=== PATIENT | male | born 1980 | race Asian ===

== ENCOUNTER 2021-03-13 09:53 | Observation (INO) ==
[2021-03-13] MEDS ORDERED: ONDANSETRON INJ 2 MG/ML 2 ML VIAL IV STA (10:34)
[2021-03-13] MEDS ORDERED: SODIUM CHLORIDE 0.9% 1000ML 1,000 ML IV STA (10:34)
--- NOTE | 2021-03-13 11:00 | Emergency Department Note ---
History of Present Illness General Chief complaint: Abdominal Pain Stated complaint: ABD PAIN SINCE 3AM LOWER LEFT Time Seen by Provider: 03/13/21 10:01 History of Present Illness Maximum Pain Intensity: 8 40-year-old male who presents to the emergency department for evaluation of left lower quadrant pain since approximately 3 AM this morning. The patient reports that the pain awakened him from sleep. The patient felt like he needed to have a bowel movement, and went to the bathroom without any productive output. He then went back to bed and was able to fall asleep. When he awoke, the pain was worse. He reports the pain is constant in nature. It does feel better when he lays on his left side. Ambulation worsens the pain. Patient does report a prior history of colonoscopy showing diverticulosis. He denies any current urinary symptoms or history of constipation. He denies any pain radiating into the right abdomen, upper back or chest. He rates his discomfort an 8 out of 10. Home Medications Medication Instructions Recorded Confirmed Type losartan 50 mg PO DAILY 03/13/21 03/13/21 History metformin 500 mg PO DAILY 03/13/21 03/13/21 History omeprazole 20 mg PO DAILY 03/13/21 03/13/21 History Allergies Allergy/AdvReac Type Severity Reaction Status Date / Time irbesartan Allergy Cough Unverified 03/13/21 11:03 Past Med/Surg History Medical History Diabetes Diverticulosis GERD (gastroesophageal reflux disease) Hypertension Surgical History History of colonoscopy Social History Smoking Status: Former smoker marital status: Single current occupational status: employed Feels Safe at Home: Yes Review of Systems 10 system review was performed and was negative except for pertinent positives and negatives as indicated in history of present illness Physical Exam Vital Signs Vital Signs - 24 hr 03/13/21 09:56 03/13/21 12:19 03/13/21 13:33 Temperature 36.2 C L Temperature Source Temporal Artery Scan Pulse Rate 71 71 Pulse Rate [Right Radial] 76 Pulse Rate from SpO2 Sensor 75 Pulse Rhythm [Right Radial] Regular Respiratory Rate 18 20 19 Respiratory Depth Normal Blood Pressure 157/89 H 170/83 H Blood Pressure [Right Arm] 169/84 H Blood Pressure Mean 111 112 Blood Pressure Mean [Right Arm] 112 Blood Pressure Position [Right Arm] Lying Pulse Oximetry 97 99 98 Oxygen Delivery Method Room Air Room Air Sepsis Recent Fever Within 48 Hours No Sepsis New/Unexplained Change in Mental Status N/A Sepsis Action Taken by Nursing No Action Required 03/13/21 13:34 03/13/21 14:14 03/13/21 14:30 Temperature Temperature Source Pulse Rate 72 68 Pulse Rate [Right Radial] Pulse Rate from SpO2 Sensor 72 68 Pulse Rhythm [Right Radial] Respiratory Rate 20 22 15 Respiratory Depth Blood Pressure 171/87 H Blood Pressure [Right Arm] Blood Pressure Mean 115 Blood Pressure Mean [Right Arm] Blood Pressure Position [Right Arm] Pulse Oximetry 98 95 Oxygen Delivery Method Sepsis Recent Fever Within 48 Hours Sepsis New/Unexplained Change in Mental Status Sepsis Action Taken by Nursing 03/13/21 14:31 03/13/21 15:00 03/13/21 15:01 Temperature Temperature Source Pulse Rate 72 63 68 Pulse Rate [Right Radial] Pulse Rate from SpO2 Sensor 72 64 68 Pulse Rhythm [Right Radial] Respiratory Rate 18 14 16 Respiratory Depth Blood Pressure 169/105 H Blood Pressure [Right Arm] Blood Pressure Mean 126 Blood Pressure Mean [Right Arm] Blood Pressure Position [Right Arm] Pulse Oximetry 96 97 98 Oxygen Delivery Method Sepsis Recent Fever Within 48 Hours Sepsis New/Unexplained Change in Mental Status Sepsis Action Taken by Nursing CONSTITUTIONAL: Healthy and well nourished. Patient does not appear acutely il l or toxic. HEENT: Normocephalic, atraumatic. No scleral icterus or conjunctival injection/pallor. NECK: Full active range of motion without discomfort. RESPIRATORY: Clear to auscultation bilaterally with no wheezing, crackles, rhonchi or stridor. CARDIOVASCULAR: Regular rate and rhythm with no murmurs, rubs or gallops. GASTROINTESTINAL: Bowel sounds present in all quadrants. Patient has a notable left lower quadrant tenderness to palpation without rigidity, guarding or rebound. Patient also has a mild right lower quadrant tenderness to palpation with negative Rovsing sign, negative psoas/obturator sign and negative heel tap. Negative CVA tenderness. MUSCULOSKELETAL: Full range of motion of all joints without discomfort. INTEGUMENTARY: No rash or other significant dermatologic conditions noted. HEMATOLOGIC: No ecchymosis or petechiae. PSYCHIATRIC: Positive affect. NEUROLOGIC: No focal neurologic deficits noted. Course Course Patient history and physical exam were performed. Nurses notes were reviewed. Vital signs were reviewed, showing an elevated blood pressure 157/89. The patient is afebrile. IV access was established, and labs were drawn. The patient was hydrated with a liter of normal saline. He was also administered IV Zofran, refusing any analgesics. Review of labs shows a mild leukocytosis of 13.35 with left shift and bandemia. CMP shows an elevated glucose of 149, otherwise remaining labs and lipase are grossly normal. Urinalysis shows no hematuria or signs of infection. CT with IV contrast of the abdomen and pelvis shows no evidence for diverticulitis, bowel obstruction or free air. The patient, unfortunately, does have an acute appendicitis. Surprising findings were discussed with the patient, as well as Dr. Encarnacion, ED attending physician. The case was then discussed with Dr. Culver, general surgeon on-call, who came to the emergency department for further evaluation, and will be taking the patient to the OR for operative management. Prior to transfer of care, the patient refused any further analgesics or antiemetics, and denied any significant discomfort. Please see Dr. Culver's dictation for further treatment and final disposition. Administered Medications Discontinued Medications Sodium Chloride (Nss 1000ml) 1,000 mls @ 999 mls/hr IV .Q1H1M STA Stop: 03/13/21 11:34 Last Infusion: 03/13/21 11:47 Dose: 0 mls/hr Documented by: [id number] Admin: 03/13/21 10:40 Dose: 999 mls/hr Documented by: [id number] Cefoxitin Sodium (Mefoxin) 2,000 mg in 60 mls @ 100 mls/hr IV NOW STA Stop: 03/13/21 14:46 Last Infusion: 03/13/21 15:17 Dose: 0 mls/hr Documented by: [id number] Admin: 03/13/21 14:38 Dose: 100 mls/hr Documented by: [id number] Ioversol (Optiray 320 100ml) 88 ml IV ONCE ONE Stop: 03/13/21 12:17 Last Admin: 03/13/21 12:16 Dose: 88 ml Documented by: [id number] Ondansetron HCl (Ondansetron Inj 2 Mg/Ml 2 Ml Vial) 4 mg IV NOW STA Stop: 03/13/21 10:35 Last Admin: 03/13/21 10:40 Dose: 4 mg Documented by: [id number] Medical Decision Making Medical Records Attestation: I reviewed the patient's medical records. Home Medications Current Medication List: was personally reviewed by me Laboratory Data Attestation: I reviewed the patient's lab results. Result diagrams: 03/13/21 10:12 03/13/21 10:12 Lab Results 03/13/21 03/13/21 03/13/21 Range/Units 10:12 10:12 12:30 WBC 13.35 H (4.8-10.8) K/uL RBC 4.97 (4.7-6.1) M/uL Hgb 15.0 (14.0-18.0) g/dL Hct 43.7 (42-52) % MCV 87.9 (80-100) fL MCH 30.2 (25-34) pg MCHC 34.3 (32-36) g/dL RDW Std Deviation 42.0 (36.4-46.3) fL RDW Coeff of [place] 13.0 (11.5-14.5) % Plt Count 218 (130-400) K/uL MPV 11.0 H (7.4-10.4) fL Immature Gran % (Auto) 0.2 % Neut % (Auto) 80.2 % Lymph % (Auto) 12.1 % [place] % (Auto) 6.1 % Eos % (Auto) 1.3 % Baso % (Auto) 0.1 % Neut # (Auto) 10.69 H (1.4-6.5) K/uL Lymph # (Auto) 1.61 (1.2-3.4) K/uL [place] # (Auto) 0.82 H (0.11-0.59) K/uL Eos # (Auto) 0.18 (0-0.5) K/uL Baso # (Auto) 0.02 (0-0.2) K/uL Immature Gran # (Auto) 0.03 H (0.00-0.02) K/uL Sodium 136 (136-145) mmol/L Potassium 3.9 (3.5-5.1) mmol/L Chloride 104 (98-107) mmol/L Carbon Dioxide 26 (21-32) mmol/L Anion Gap 6.0 (3-11) BUN 12 (7-18) mg/dl Creatinine 0.87 (0.6-1.4) mg/dl Est Cr Clr Drug Dosing 159.2 ml/min Est GFR ( Amer) 126.0 ml/min Est GFR (Non-Af Amer) 108.7 ml/min BUN/Creatinine Ratio 13.2 (10-20) Glucose 149 H (70-99) mg/dl Calcium 9.2 (8.5-10.1) mg/dl Total Bilirubin 0.6 (0.2-1) mg/dl AST 29 (15-37) U/L ALT 57 (12-78) U/L Alkaline Phosphatase 80 (45-117) U/L Total Protein 7.6 (6.4-8.2) gm/dl Albumin 3.9 (3.4-5.0) gm/dl Globulin 3.7 (2.5-4.0) gm/dl Albumin/Globulin Ratio 1.1 (0.9-2) Lipase 93 (73-393) U/L Urine Color Yellow Urine Appearance Cloudy A (Clear) Urine pH 7.5 (4.5-7.5) Ur Specific War 1.029 (1.000-1.030) Urine Protein Trace H (Negative) Urine Glucose (UA) Negative (Negative) Urine Ketones Negative (Negative) Urine Blood Negative (Negative) Urine Nitrite Negative (Negative) Urine Bilirubin Negative (Negative) Urine Urobilinogen Negative (Negative) Ur Leukocyte Esterase Negative (Negative) Urine WBC (Auto) 1-5 (0-5) /hpf Urine RBC (Auto) 0-4 (0-4) /hpf U Hyaline Cast (Auto) 0 (0-5) /lpf U Epithel Cells (Auto) 0-5 (0-5) /lpf Urine Bacteria (Auto) Negative (Negative) COVID-19 Eval Order SARS-CoV-2 (PCR) (Negative) 03/13/21 03/13/21 Range/Units Unknown Unknown WBC (4.8-10.8) K/uL RBC (4.7-6.1) M/uL Hgb (14.0-18.0) g/dL Hct (42-52) % MCV (80-100) fL MCH (25-34) pg MCHC (32-36) g/dL RDW Std Deviation (36.4-46.3) fL RDW Coeff of [place] (11.5-14.5) % Plt Count (130-400) K/uL MPV (7.4-10.4) fL Immature Gran % (Auto) % Neut % (Auto) % Lymph % (Auto) % [place] % (Auto) % Eos % (Auto) % Baso % (Auto) % Neut # (Auto) (1.4-6.5) K/uL Lymph # (Auto) (1.2-3.4) K/uL [place] # (Auto) (0.11-0.59) K/uL Eos # (Auto) (0-0.5) K/uL Baso # (Auto) (0-0.2) K/uL Immature Gran # (Auto) (0.00-0.02) K/uL Sodium (136-145) mmol/L Potassium (3.5-5.1) mmol/L Chloride (98-107) mmol/L Carbon Dioxide (21-32) mmol/L Anion Gap (3-11) BUN (7-18) mg/dl Creatinine (0.6-1.4) mg/dl Est Cr Clr Drug Dosing ml/min Est GFR ( Amer) ml/min Est GFR (Non-Af Amer) ml/min BUN/Creatinine Ratio (10-20) Glucose (70-99) mg/dl Calcium (8.5-10.1) mg/dl Total Bilirubin (0.2-1) mg/dl AST (15-37) U/L ALT (12-78) U/L Alkaline Phosphatase (45-117) U/L Total Protein (6.4-8.2) gm/dl Albumin (3.4-5.0) gm/dl Globulin (2.5-4.0) gm/dl Albumin/Globulin Ratio (0.9-2) Lipase (73-393) U/L Urine Color Urine Appearance (Clear) Urine pH (4.5-7.5) Ur Specific War (1.000-1.030) Urine Protein (Negative) Urine Glucose (UA) (Negative) Urine Ketones (Negative) Urine Blood (Negative) Urine Nitrite (Negative) Urine Bilirubin (Negative) Urine Urobilinogen (Negative) Ur Leukocyte Esterase (Negative) Urine WBC (Auto) (0-5) /hpf Urine RBC (Auto) (0-4) /hpf U Hyaline Cast (Auto) (0-5) /lpf U Epithel Cells (Auto) (0-5) /lpf Urine Bacteria (Auto) (Negative) COVID-19 Eval Order Covid19 at [facility] SARS-CoV-2 (PCR) NEGATIVE (Negative) Imaging Data Attestation: I personally reviewed and interpreted this imaging study as follows: My Impression: My interpretation of a CT with IV contrast of the abdomen and pelvis is highly suspicious for an acute appendicitis. No diverticulitis, bowel obstruction or abdominal free air appreciated. Radiologist report was also rev iewed. Radiologist's Impression: Abdomen/Pelvis CT 03/13/21 10:34 CT abd pelvis IV con only CLINICAL HISTORY: LLQ pain - h/o diverticulosis COMPARISON STUDY: None. TECHNIQUE: A dose lowering technique was utilized adhering to the principles of ALARA. CT DOSE: 1742.23 mGy.cm FINDINGS: Lower chest: The heart is normal in size and configuration, without pericardial effusion. The lung bases and pleural spaces are clear. Liver: Diffuse decrease in attenuation of its parenchyma without evidence of focal lesions or intrahepatic biliary dilatation. Gallbladder: Unremarkable. Spleen: Normal in size and attenuation. Pancreas: Unremarkable. Adrenal glands: Unremarkable. Kidneys: There is symmetric renal cortical enhancement. The kidneys are normal in size without hydronephrosis. 5 mm nonobstructive calculus is seen within left renal pelvis. Bowel: The small bowel and colon are normal in course and caliber. Mild hiatal hernia is seen. Appendix is mildly dilated measuring 1.1 cm in diameter with mild surrounding fat stranding. Findings are concerning for appendicitis. No evidence of perforation or abscess is seen. Few slightly prominent mesenteric lymph nodes are seen within right hemiabdomen. Few diverticuli are seen within ascending and sigmoid colon without evidence of diverticulitis. Peritoneum: There is no intraperitoneal free air or abdominal ascites. Vasculature: The abdominal aorta is normal in course and caliber. Adenopathy: No retroperitoneal lymphadenopathy seen. Pelvic viscera: The bladder, and pelvic viscera are unremarkable. Skeletal structures: Multilevel degenerative changes of the spine. Heavy b ridging osteophytes within lumbar spine are seen. IMPRESSION: 1. Dilated appendix with mild surrounding inflammatory changes likely represent acute noncomplicated appendicitis. 2. Hepatic steatosis. 3. Mild hiatal hernia. 4. Diverticulosis of ascending and sigmoid colon without evidence of diverticulitis. 5. Nonobstructive nephrolithiasis on the left. ACT 112: Negative or not required by law. The above report was generated using voice recognition software. It may contain grammatical, syntax or spelling errors. Electronically signed by: Sanjana Cox DO 03/13/2021 1:02 PM Blood Pressure Blood Pressure Findings: Elevated blood pressure MDM Narrative She presents to the emergency department with complaint of left lower quadrant abdominal pain. Patient has a history of colonoscopy showing diverticulosis in the past. Work-up today was suspected to show evidence for diverticulitis, however CT imaging does not show this to be the case, and in fact shows an acute appendicitis. Patient does have a mild leukocytosis. He is afebrile. Baljit tional lab work is not suggestive of UTI, pancreatitis, cholecystitis or hepatitis. Impression & Plan Acute appendicitis Discharge Plan Visit Data Chief Complaint: Abdominal Pain Stated Complaint: ABD PAIN SINCE 3AM LOWER LEFT ED Provider: Camden Encarnacion ED Midlevel Provider: Louie Pittman Discharge Problem: Acute appendicitis Forms Stand Alone Forms: [employer] Prescriptions Prescriptions: No Action losartan 50 mg Tablet 50 mg PO DAILY RF: 0 metformin 500 mg Tablet 500 mg PO DAILY RF: 0 omeprazole 20 mg Capsule,Delayed Release(Dr/Ec) 20 mg PO DAILY RF: 0 Discharge Problem: Acute appendicitis Qualifiers: Acute appendicitis type: with localized peritonitis Appendicitis gangrene presence: without gangrene Appendicitis perforation presence: without perforation Appendicitis abscess presence: without abscess Qualified Code(s): K35.30 - Acute appendicitis with localized peritonitis, without perforation or gangrene
[2021-03-13 11:06] LABS: Basophils # (auto) 0.02 K/uL (0-0.2); Basophils % (auto) 0.1 %; Eosinophils # (auto) 0.18 K/uL (0-0.5); Eosinophils % (auto) 1.3 %; Hematocrit (blood only) 43.7 % (42-52); Immature Granulocytes # (auto) 0.03 K/uL (0.00-0.02); Immature Granulocytes % (auto) 0.2 %; Lymphocytes # (auto) 1.61 K/uL (1.2-3.4); Lymphocytes % (auto) 12.1 %; Mean Corpuscular Hemoglobin 30.2 pg (25-34); Mean Corpuscular Hgb Conc 34.3 g/dL (32-36); Mean Corpuscular Volume 87.9 fL (80-100); Monocytes # (auto) 0.82 K/uL (0.11-0.59); Monocytes % (auto) 6.1 %; Neutrophils # (auto) 10.69 K/uL (1.4-6.5); Neutrophils % (auto) 80.2 %; Platelet Count 218 K/uL (130-400); Red Blood Count 4.97 M/uL (4.7-6.1); White Blood Count 13.35 K/uL (4.8-10.8)
[2021-03-13 11:14] LABS: Albumin Level 3.9 gm/dl (3.4-5.0); BUN Creatinine Ratio 13.2 (10-20); Calcium 9.2 mg/dl (8.5-10.1); Creatinine Clr Calc Pharmacy 159.2 ml/min; Est GFR (Non-African American) 108.7 ml/min; Potassium 3.9 mmol/L (3.5-5.1)
[2021-03-13 11:17] LABS: Albumin Globulin Ratio 1.1 (0.9-2); Bilirubin,Total 0.6 mg/dl (0.2-1); Globulin 3.7 gm/dl (2.5-4.0); Total Protein 7.6 gm/dl (6.4-8.2)
[2021-03-13] MEDS ORDERED: OPTIRAY 320 100ml IV ONE (12:16)
[2021-03-13 12:46] LABS: Appearance Urine Cloudy (Clear); Bacteria Urine Automated Negative (Negative); Bilirubin Urine Negative (Negative); Blood Urine Negative (Negative); Cast Urine Automated 0 /lpf (0-5); Color Urine Yellow; Epithelial Cell Urine Auto 0-5 /lpf (0-5); Glucose Urine UA Negative (Negative); Ketones Urine Negative (Negative); Leukocyte Esterase Urine Negative (Negative); Nitrite Urine Negative (Negative); RBC Urine Automated 0-4 /hpf (0-4); Specific Gravity Urine 1.029 (1.000-1.030); Urobilinogen Urine Negative (Negative); pH Urine 7.5 (4.5-7.5)
[2021-03-13 12:56] LABS: Protein Urine Trace (Negative)
--- NOTE | 2021-03-13 13:03 | CT Scan Report ---
CT abd pelvis IV con only CLINICAL HISTORY: LLQ pain - h/o diverticulosis COMPARISON STUDY: None. TECHNIQUE: A dose lowering technique was utilized adhering to the principles of ALARA. CT DOSE: 1742.23 mGy.cm FINDINGS: Lower chest: The heart is normal in size and configuration, without pericardial effusion. The lung ba ses and pleural spaces are clear. Liver: Diffuse decrease in attenuation of its parenchyma without evidence of focal lesions or intrahe patic biliary dilatation. Gallbladder: Unremarkable. Spleen: Normal in size and attenuation. Pancreas: Unremarkable. Adrenal glands: Unremarkable. Kidneys: There is symmetric renal cortical enhancement. The kidneys are normal in size without hydron ephrosis. 5 mm nonobstructive calculus is seen within left renal pelvis. Bowel: The small bowel and colon are normal in course and caliber. Mild hiatal hernia is seen. Append ix is mildly dilated measuring 1.1 cm in diameter with mild surrounding fat stranding. Findings are c oncerning for appendicitis. No evidence of perforation or abscess is seen. Few slightly prominent mes enteric lymph nodes are seen within right hemiabdomen. Few diverticuli are seen within ascending and sigmoid colon without evidence of diverticulitis. Peritoneum: There is no intraperitoneal free air or abdominal ascites. Vasculature: The abdominal aorta is normal in course and caliber. Adenopathy: No retroperitoneal lymphadenopathy seen. Pelvic viscera: The bladder, and pelvic viscera are unremarkable. Skeletal structures: Multilevel degenerative changes of the spine. Heavy bridging osteophytes within lumbar spine are seen. IMPRESSION: 1. Dilated appendix with mild surrounding inflammatory changes likely represent acute noncomplicated appendicitis. 2. Hepatic steatosis. 3. Mild hiatal hernia. 4. Diverticulosis of ascending and sigmoid colon without evidence of diverticulitis. 5. Nonobstructive nephrolithiasis on the left. ACT 112: Negative or not required by law. The above report was generated using voice recognition software. It may contain grammatical, syntax o r spelling errors. Electronically signed by: Sanjana Cox DO 03/13/2021 1:02 PM
--- NOTE | 2021-03-13 14:05 | Surgery Consultation ---
Date of Consultation March 13, 2021 Assessment & Plan (1) Acute appendicitis: pt is a 40 year-old male who presents to ER with 10 hours history RLQ pain, IMP: acute appendicitis, Plan, I recommend to do laparoscopic appendectomy, possible open, D/W benefits, risks and alternatives of the surgery, the risks - infection, bleeding, injury other organs, abscess, bowel obstruction, negative for appendicitis, but still do appendectomy, pt understood, he agrees with the surgery, I answered all questions, pre-op antibiotic, Present on Admission?: Yes History of Present Illness History of Present Illness History of Present Illness General Chief complaint: Abdominal Pain Stated complaint: ABD PAIN SINCE 3AM LOWER LEFT Time Seen by Provider: 03/13/21 10:01 History of Present Illness Maximum Pain Intensity: 8 40-year-old male who presents to the emergency department for evaluation of left lower quadrant pain since approximately 3 AM this morning. The patient reports that the pain awakened him from sleep. The patient felt like he needed to have a bowel movement, and went to the bathroom without any productive output. He then went back to bed and was able to fall asleep. When he awoke, the pain was worse. He reports the pain is constant in nature. It does feel better when he lays on his left side. Ambulation worsens the pain. Patient does report a prior history of colonoscopy showing diverticulosis. He denies any current urinary symptoms or history of constipation. He denies any pain radiating into the right abdomen, upper back or chest. He rates his discomfort an 8 out of 10. I ( Michelet Culver MD) got a call for consult acute appendicitis, I reviewed pt's H/P, labs, CT scan with pt, pt is still have RLQ pain , with nausea, no vomiting, Home Medications Medication Instructions Recorded Confirmed Type losartan 50 mg PO DAILY 03/13/21 03/13/21 History metformin 500 mg PO DAILY 03/13/21 03/13/21 History omeprazole 20 mg PO DAILY 03/13/21 03/13/21 History Allergies Allergy/AdvReac Type Severity Reaction Status Date / Time No Known Allergies Allergy Verified 03/13/21 10:58 Past Med/Surg History Social History Smoking Status: Former smoker Feels Safe at Home: Yes Allergies Allergy/AdvReac Type Severity Reaction Status Date / Time irbesartan Allergy Cough Unverified 03/13/21 11:03 Home Medications Medication Instructions Recorded Confirmed Type losartan 50 mg PO DAILY 03/13/21 03/13/21 History metformin 500 mg PO DAILY 03/13/21 03/13/21 History omeprazole 20 mg PO DAILY 03/13/21 03/13/21 History Patient History Social History Smoking Status: Former smoker Feels Safe at Home: Yes Review of Systems Review of Systems: All systems reviewed & are unremarkable except as noted in HPI & below Constitutional: as per Subjective / HPI Eyes: as per Subjective / HPI Ear, Nose, Mouth, Throat: as per Subjective / HPI Respiratory: as per Subjective / HPI Cardiovascular: as per Subjective / HPI Gastrointestinal: as per Subjective / HPI S/P colonoscopy, diagnosis- diverticolosis Genitourinary: + as per Subjective / HPI Musculoskeletal: as per Subjective / HPI Integumentary: as per Subjective / HPI Neurologic: as per Subjective / HPI Psychiatric: as per Subjective / HPI Endocrine: as per Subjective / HPI DM Hematologic / Lymphatic: as per Subjective / HPI Physical Exam Constitutional: WD/WN, vitals as above well developed and well nourished Eyes: PERRL, conjunctivae normal, anicteric sclerae ENMT: external ear and nose normal, oropharynx normal Neck: trachea midline, no thyromegaly Respiratory: normal respiratory effort, lungs clear to auscultation normal respiratory effort Cardiovascular: RRR, no murmur, no edema Gastrointestinal (Abdomen): Percussion/Palpation: + abdomen tender and abdomen soft tenderness at RLQ, no rebound pain, BS + Musculoskeletal: no cyanosis or clubbing, extremities motor strength 5/5 Neurologic: awake Psychiatric: Orientation: alert and oriented x 3 Results & Data ([facility]) Vital Signs (Past 12 Hours) Vital Signs Temp Pulse Pulse Resp BP BP Pulse Ox 03/13/21 12:19 76 20 169/84 H 99 03/13/21 09:56 36.2 C L 71 18 157/89 H 97 Laboratory Results Abnormal lab results 03/13/21 03/13/21 03/13/21 Range/Units 10:12 10:12 12:30 WBC 13.35 H (4.8-10.8) K/uL MPV 11.0 H (7.4-10.4) fL Neut # (Auto) 10.69 H (1.4-6.5) K/uL [place] # (Auto) 0.82 H (0.11-0.59) K/uL Immature Gran # (Auto) 0.03 H (0.00-0.02) K/uL Glucose 149 H (70-99) mg/dl Urine Appearance Cloudy A (Clear) Urine Protein Trace H (Negative) Diagnostic Findings CT abd pelvis IV con only CLINICAL HISTORY: LLQ pain - h/o diverticulosis COMPARISON STUDY: None. TECHNIQUE: A dose lowering technique was utilized adhering to the principles of ALARA. CT DOSE: 1742.23 mGy.cm FINDINGS: Lower chest: The heart is normal in size and configuration, without pericardial effusion. The lung bases and pleural spaces are clear. Liver: Diffuse decrease in attenuation of its parenchyma without evidence of focal lesions or intrahepatic biliary dilatation. Gallbladder: Unremarkable. Spleen: Normal in size and attenuation. Pancreas: Unremarkable. Adrenal glands: Unremarkable. Kidneys: There is symmetric renal cortical enhancement. The kidneys are normal in size without hydronephrosis. 5 mm nonobstructive calculus is seen within left renal pelvis. Bowel: The small bowel and colon are normal in course and caliber. Mild hiatal hernia is seen. Appendix is mildly dilated measuring 1.1 cm in diameter with mild surrounding fat stranding. Findings are concerning for appendicitis. No evidence of perforation or abscess is seen. Few slightly prominent mesenteric lymph nodes are seen within right hemiabdomen. Few diverticuli are seen within ascending and sigmoid colon without evidence of diverticulitis. Peritoneum: There is no intraperitoneal free air or abdominal ascites. Vasculature: The abdominal aorta is normal in course and caliber. Adenopathy: No retroperitoneal lymphadenopathy seen. Pelvic viscera: The bladder, and pelvic viscera are unremarkable. Skeletal structures: Multilevel degenerative changes of the spine. Heavy bridging osteophytes within lumbar spine are seen. IMPRESSION: 1. Dilated appendix with mild surrounding inflammatory changes likely represent acute noncomplicated appendicitis. 2. Hepatic steatosis. 3. Mild hiatal hernia. 4. Diverticulosis of ascending and sigmoid colon without evidence of diverticulitis. 5. Nonobstructive nephrolithiasis on the left.
[2021-03-13] MEDS ORDERED: BACITRACIN OINT 15 GM TUBE ONE (14:07)
[2021-03-13] MEDS ORDERED: LIDOCAINE 1% LOCAL 20 ML VIAL ONE (14:07)
[2021-03-13] MEDS ORDERED: BUPIVACAINE 0.5 % 5 MG/1 ML MPF 30ML VIAL ONE (14:07)
[2021-03-13] MEDS ORDERED: cefOXitin 2,000 MG/60 ML BAG IV STA (14:11)
--- NOTE | 2021-03-13 14:11 | History & Physical Bridge Note ---
Date of Service March 13, 2021 History & Physical Bridge Note I have examined the patient, reviewed the History & Physical and in the interval since the performance of the History & Physical I have noted the following changes of clinical significance: no changes noted
--- NOTE | 2021-03-13 14:17 | Anesthesiology Consultation ---
Date of Service March 13, 2021 Assessment & Plan (1) Encounter for pre-operative examination: Chart Review Chart Review: Acceptable Risk for Surgery and Patient NOT seen in Pre Admission Testing Consults Requested none ASA [id number] Proposed Anesthesia Anesthesia Type: General Risk / Benefits Reviewed With: PT / POA / Parent / Guardian, Accepts Plan and In formed Consent Obtained History Surgery Operation Date: 03/13/21 09:50 Proposed Procedures p Laparoscopic Appendectomy - Michelet Culver MD Height/Weight Height: 6 ft Weight: 130.4 kg Allergies Allergy/AdvReac Type Severity Reaction Status Date / Time irbesartan Allergy Cough Unverified 03/13/21 11:03 Medications Home Medications Medication Instructions Recorded Confirmed Last Taken losartan 50 mg PO DAILY 03/13/21 03/13/21 03/12/21 metformin 500 mg PO DAILY 03/13/21 03/13/21 03/12/21 omeprazole 20 mg PO DAILY 03/13/21 03/13/21 03/12/21 NPO Date Last Intake of Fluids: 03/13/21 Time Last Intake of Fluids: 09:30 Date Last Intake of Solids: 03/13/21 Time Last Intake of Solids: 08:00 Past Medical History Medical History Diabetes Diverticulosis GERD (gastroesophageal reflux disease) Hypertension Exercise / Class Metabolic Activity II 4-5 Yardwork/Stairs/Walk up hill Negative for chest pain or shortness of breath. Past Surgical History Surgical History History of colonoscopy Past Anesthesia History No Hx of Anesthesia Complications History of PONV No Hx of PONV and Hx of Motion Sickness Social History Smoking Status: Former smoker Review of Systems Patient denies active symptoms of GERD. Physical Exam Vital Signs Last Vital Signs Temp 37.1 C 03/13/21 15:57 Pulse 73 03/13/21 15:57 Resp 18 03/13/21 15:57 BP 155/75 H 03/13/21 15:57 Pulse Ox 97 03/13/21 15:57 Constitutional + obese ENMT Mouth: no TMJ abnormality and oral opening not small Thyromental Distance: > or= 3.5 Finger Breadths Mallampati Class: II Neck normal visual inspection; neck extension not limited Respiratory normal respiratory effort Cardiovascular Rate/Rhythm: regular rate and regular rhythm Neurologic moves all extremities Psychiatric Orientation: alert and oriented x 3 Testing Laboratory Results 03/13/21 10:12 03/13/21 10:12 Urine Color Yellow 03/13/21 12:30 Urine Appearance Cloudy (Clear) A 03/13/21 12:30 Urine pH 7.5 (4.5-7.5) 03/13/21 12:30 Ur Specific [place] 1.029 (1.000-1.030) 03/13/21 12:30 Urine Protein Trace (Negative) H 03/13/21 12:30 Urine Glucose (UA) Negative (Negative) 03/13/21 12:30 Urine Ketones Negative (Negative) 03/13/21 12:30 Urine Nitrite Negative (Negative) 03/13/21 12:30 Ur Leukocyte Esterase Negative (Negative) 03/13/21 12:30 Urine WBC (Auto) 1-5 /hpf (0-5) 03/13/21 12:30 Urine RBC (Auto) 0-4 /hpf (0-4) 03/13/21 12:30 U Hyaline Cast (Auto) 0 /lpf (0-5) 03/13/21 12:30 U Epithel Cells (Auto) 0-5 /lpf (0-5) 03/13/21 12:30 Urine Bacteria (Auto) Negative (Negative) 03/13/21 12:30
[2021-03-13] MEDS ORDERED: DEXAMETHASONE SOD INJ 4 MG/ML VIAL ONE ×2 (14:19→17:15)
[2021-03-13] MEDS ORDERED: ROCURONIUM BROMIDE 10 MG/ML 5 ML VIAL IV ONE ×2 (14:19→17:15)
[2021-03-13] MEDS ORDERED: fentaNYL citrate 100 MCG/2 ML VIAL ONE ×2 (14:19→16:19)
[2021-03-13] MEDS ORDERED: GLYCOPYRROLATE 0.2 MG/ML VIAL ONE ×3 (14:19→17:15)
[2021-03-13] MEDS ORDERED: ONDANSETRON INJ 2 MG/ML 2 ML VIAL ONE ×2 (14:19→17:15)
[2021-03-13] MEDS ORDERED: NEOSTIGMINE METHYLSULFATE 1 MG/ML 10ML VIAL ONE ×2 (14:19→17:15)
[2021-03-13] MEDS ORDERED: PROPOFOL IV EMULSION 10 MG/ML 20 ML VIAL IV ONE ×3 (14:19→17:37)
[2021-03-13] MEDS ORDERED: LIDOCAINE 2% 2 ML VIAL/AMP(20MG/ML) INFIL ONE ×2 (14:19→17:15)
[2021-03-13] MEDS ORDERED: MIDAZOLAM HCL 1 MG/ML 2ML VIAL ONE (16:19)
[2021-03-13] MEDS ORDERED: SCOPOLAMINE 1 MG TDSY TD ONE ×2 (16:41→16:44)
[2021-03-13] MEDS ORDERED: HYDROmorphone INJ 2 MG/ML SYR/VIAL IV PRN (16:44)
[2021-03-13] MEDS ORDERED: PROMETHAZINE HCL 12.5 MG in SODIUM CHLORIDE 0.9% 50 ML IV PRN (16:44)
[2021-03-13] MEDS ORDERED: ePHEDrine sulfate 50 MG/ML AMP IV PRN (16:44)
[2021-03-13] MEDS ORDERED: fentaNYL citrate 100 MCG/2 ML VIAL IV PRN (16:44)
[2021-03-13] MEDS ORDERED: ONDANSETRON INJ 2 MG/ML 2 ML VIAL IV PRN ×2 (16:44→18:06)
[2021-03-13] MEDS ORDERED: ATROPINE SULFATE 0.1 MG/ML 10ML SYR IV PRN (16:44)
[2021-03-13] MEDS ORDERED: PHENYLEPHRINE 100MCG/ML 5ML SYR ONE (17:15)
[2021-03-13] MEDS ORDERED: LARYING-O-JET KIT (LTA) ONE (17:15)
[2021-03-13] MEDS ORDERED: SUCCINYLCHOLINE CHLORIDE 20 MG/ML 10 ML VIAL IV ONE (17:15)
[2021-03-13] MEDS ORDERED: ePHEDrine sulfate 50 MG/ML AMP ONE (17:22)
[2021-03-13] MEDS ORDERED: SODIUM CHLORIDE 0.9% INJ 10 ML VIAL ONE (17:22)
[2021-03-13] MEDS ORDERED: KETOROLAC 30 MG/ML VIAL ONE (17:50)
--- NOTE | 2021-03-13 18:01 | Post Operative Brief Note ---
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
--- NOTE | 2021-03-13 19:02 | Anesthesiology Progress Note ---
Date of Service March 13, 2021 Anesthesia Post Procedure Vital Signs Vital Signs: Temp Pulse Pulse Pulse Resp BP BP 03/13/21 18:50 36.7 C 66 12 127/70 03/13/21 18:40 63 12 128/72 03/13/21 18:30 68 12 132/76 03/13/21 18:20 77 12 144/73 H 03/13/21 18:11 36.3 C L 70 19 138/75 03/13/21 15:57 37.1 C 73 18 155/75 H 03/13/21 15:31 65 17 03/13/21 15:30 70 16 03/13/21 15:01 68 16 03/13/21 15:00 63 14 169/105 H 03/13/21 14:31 72 18 03/13/21 14:30 68 15 171/87 H 03/13/21 14:14 22 03/13/21 13:34 72 20 03/13/21 13:33 71 19 170/83 H 03/13/21 12:19 76 20 03/13/21 09:56 36.2 C L 71 18 157/89 H BP Pulse Ox 03/13/21 18:50 98 03/13/21 18:40 98 03/13/21 18:30 100 03/13/21 18:20 100 03/13/21 18:11 100 03/13/21 15:57 97 03/13/21 15:31 96 03/13/21 15:30 97 03/13/21 15:01 98 03/13/21 15:00 97 03/13/21 14:31 96 03/13/21 14:30 95 03/13/21 14:14 03/13/21 13:34 98 03/13/21 13:33 98 03/13/21 12:19 169/84 H 99 03/13/21 09:56 97 Pain Intensity Abdomen: Pain Intensity: 4 Transfer of Care Handoff Completed per policy Notes Mental Status: alert / awake / arousable and participated in evaluation Patient Amnestic to Procedure: Yes Nausea / Vomiting: adequately controlled Pain: adequately controlled Airway Patency, RR, SpO2: stable & adequate BP & HR: stable & adequate Hydration State: stable & adequate Anesthetic Complications: no major complications apparent and Pt Satisfied with anesthetic care
[2021-03-13] MEDS ORDERED: PIPERACILL/TAZOBAC CONSULT ACTIVE PRN (20:01)
[2021-03-13] MEDS ORDERED: PIPERACILLIN/TAZOBACTAM 3.375 GM in DEXTROSE 5% 100 ML IV SCH (20:01)
[2021-03-13] MEDS ORDERED: HYDROmorphone INJ 1 MG/ML SYRINGE IV PRN (20:01)
[2021-03-13] MEDS ORDERED: oxyCODONE/ACETAMINOPHEN 5mg/325mg TAB PO PRN (20:01)
[2021-03-13] MEDS ORDERED: PIPERACILLIN/TAZOBACTAM 4.5 GM in DEXTROSE 5% 100 ML IV ONE (20:45)
[2021-03-13] MEDS ORDERED: LACTATED RINGER'S 1,000 ML IV SCH (21:00)
[2021-03-14] MEDS: CHECK SCOPOLAMINE PATCH PLACEMENT SCH ×2 (01:19→07:29)
[2021-03-14] MEDS: PIPERACILLIN/TAZOBACTAM 4.5 GM in DEXTROSE 5% 100 ML IV SCH ×2 (01:37→09:01)
--- NOTE | 2021-03-14 05:08 | Operative Report (OR) ---
DATE OF OPERATION: 03/13/2021 PREOPERATIVE DIAGNOSIS: Acute appendicitis. POSTOPERATIVE DIAGNOSIS: Acute appendicitis. PROCEDURE: Laparoscopic appendectomy. SURGEON: Michelet Culver MD ANESTHESIA: General. ESTIMATED BLOOD LOSS: About 10 mL. FINDINGS: Acute appendicitis, significant inflammation on the appendix. There is some pus around the appendix, possible microperforation. COMPLICATIONS: None. INDICATIONS FOR THE PROCEDURE: This is a 40-year-old gentleman who presented to ED with 10-hour history of right lower quadrant pain and the patient had a CT scan diagnosis of acute appendicitis. I recommended to do a laparoscopic appendectomy, possible open. I did talk to the patient about the benefits, the risks, and alternate procedures. I indicated the risks may include, but not limited such as bleeding, infection, injury to other organs, abscess, bowel obstruction, incisional hernia, even . The patient understands. He signed informed consent and I answered all questions. DETAILS OF PROCEDURE: After we identified the patient and verified the procedure, we brought in the patient to the OR and put the patient on the supine position. The patient received SCDs on bilateral legs to prevent DVT. Also, the patient received 2 g cefoxitin IV for prophylactic antibiotic. The patient received general anesthesia without difficulty. The abdomen was prepped and draped in routine sterile fashion. After time-out, I injected local anesthesia by using 1% lidocaine mixed with 0.5% Marcaine just above the umbilicus. Then I made a small incision just above the umbilicus, opened fascia and opened peritoneum under direct vision, put a Diana trocar in, connected to CO2 to create pneumoperitoneum. Flow rate at 6 liters per minute. Pressure not more than 14 mmHg. Once we got a nice pneumoperitoneum, we put the camera in, looked around the abdomen. At this moment, because the patient had significant fatty tissue inside the abdomen, we put another two 5 mm trocars on the left lower quadrant. Then we mobilized the patient's small bowel and located the cecum where we found the patient had acute appendicitis. Appendix was significantly enlarged with significant inflammation around the appendix, some pus around the appendix. We suctioned the pus out, possible microperforation. Once we confirmed diagnosis of acute appendicitis, I used the harmonic to take down appendiceal, rechecked, no active bleeding, and then we used 45 mm Endo-ROE stapler for transection on the base of appendix, rechecked the staple line, intact. No leak, no active bleeding. Then we removed the appendix through the catch bag. Then we reinserted the Diana trocar in, connected to CO2 to create pneumoperitoneum. Again looked around the abdomen, no active bleeding, no leak on the staple line. Then we removed all trocar under direct vision. No active bleeding from the trocar sites. Pneumoperitoneum was released. Then I closed the umbilical incision, fascial layer, by using 0 Vicryl [id number] x2, closed subcutaneous layer by using 2-0 Vicryl interruptedly, closed skin by using 4-0 Vicryl continuous running, closed another two 5 mm trocar sites skin only by using 4-0 Vicryl. Then we put the dressing on. The patient tolerated the procedure well. All instrument, needle, and sponge counts were correct x2 at the end of the case. The patient transferred to recovery room in stable condition. The specimen sent to pathology. After the procedure, I did talk to the patient about the OR finding and the procedure we did and the patient understood. I attest to the content of the Intraoperative Record and any orders documented therein. Any exceptions are noted below. LIZY
[2021-03-14 06:26] LABS: Eosinophils # (auto) 0.01 K/uL (0-0.5); Eosinophils % (auto) 0.1 %; Hematocrit (blood only) 41.1 % (42-52); Hemoglobin 14.1 g/dL (14.0-18.0); Immature Granulocytes # (auto) 0.02 K/uL (0.00-0.02); Immature Granulocytes % (auto) 0.2 %; Lymphocytes # (auto) 1.51 K/uL (1.2-3.4); Lymphocytes % (auto) 15.4 %; Mean Corpuscular Hemoglobin 30.4 pg (25-34); Mean Corpuscular Hgb Conc 34.3 g/dL (32-36); Mean Corpuscular Volume 88.6 fL (80-100); Mean Platelet Volume 10.6 fL (7.4-10.4); Monocytes # (auto) 0.57 K/uL (0.11-0.59); Monocytes % (auto) 5.8 %; Neutrophils # (auto) 7.68 K/uL (1.4-6.5); Neutrophils % (auto) 78.5 %; Platelet Count 213 K/uL (130-400); RDW Coefficient of Variation 13.5 % (11.5-14.5); RDW Standard Deviation 43.6 fL (36.4-46.3); Red Blood Count 4.64 M/uL (4.7-6.1); White Blood Count 9.79 K/uL (4.8-10.8)
[2021-03-14 07:04] LABS: Albumin Level 3.3 gm/dl (3.4-5.0); BUN Creatinine Ratio 10.5 (10-20); Creatinine Clr Calc Pharmacy 152.7 ml/min; Est GFR (African American) 124.3 ml/min; Est GFR (Non-African American) 107.2 ml/min; Potassium 4.4 mmol/L (3.5-5.1)
[2021-03-14 07:05] LABS: Albumin Globulin Ratio 0.9 (0.9-2); Bilirubin,Total 0.8 mg/dl (0.2-1); Globulin 3.6 gm/dl (2.5-4.0); Total Protein 6.9 gm/dl (6.4-8.2)
[2021-03-14] MEDS ORDERED: LOSARTAN POTASSIUM 50 MG TAB PO SCH (09:00)
[2021-03-14] MEDS ORDERED: PANTOprazole 40 MG TAB PO SCH (09:00)
[2021-03-14] MEDS ORDERED: ACETAMINOPHEN 325 MG TAB PO PRN (09:15)
--- NOTE | 2021-03-14 12:44 | Discharge Summary ---
Date of Service March 14, 2021 Admission HPI Per Admitting Provider 40-year-old male who presents to the emergency department for evaluation of left lower quadrant pain since approximately 3 AM this morning. The patient reports that the pain awakened him from sleep. The patient felt like he needed to have a bowel movement, and went to the bathroom without any productive output. He then went back to bed and was able to fall asleep. When he awoke, the pain was worse. He reports the pain is constant in nature. It does feel better when he lays on his left side. Ambulation worsens the pain. Patient does report a prior history of colonoscopy showing diverticulosis. He denies any current urinary symptoms or history of constipation. He denies any pain radiating into the right abdomen, upper back or chest. He rates his discomfort an 8 out of 10. I ( Michelet Culver MD) got a call for consult acute appendicitis, I reviewed pt's H/P, labs, CT scan with pt, pt is still have RLQ pain , with nausea, no vomiting, Principal Diagnosis Acute appendicitis Discharge Exam Constitutional WD/WN, vitals as above Respiratory normal respiratory effort; no respiratory distress and no labored breathing Gastrointestinal (Abdomen) Inspection/Auscultation: abdomen normal to inspection and normal bowel sounds; abdomen not distended Percussion/Palpation: + abdomen tender (mild at incision sites, appropriate postop) and abdomen soft; no guarding and abdomen not rigid Skin no rashes, warm and dry + incision (covered with dressings, mild dry spotting of blood present) Psychiatric A+Ox3, euthymic affect Discharge Data Allergies Allergy/AdvReac Type Severity Reaction Status Date / Time irbesartan Allergy Cough Unverified 03/13/21 11:03 Consultations 03/13/21 13:14 ED Decision to Admit Stat Procedures Performed Operation Date: 03/13/21 09:50 Actual Procedures p Laparoscopic Appendectomy(Not Applicable) - Michelet Culver MD Ordered Studies 03/13/21 10:34 CT abd pelvis IV con only Stat Hospital Course (1) Acute appendicitis: Patient taken to operating room for laparoscopic appendectomy by Dr. Culver. Patient found to have acute appendicitis with possible microperforation with small amount of purulence surrounding appendix however no organized abscess present. Patient tolerated procedure well and was transferred to recovery then to medical/surgical floor for postoperative care. IV Zosyn, IV Dilaudid prn pain, PO Percocet prn pain, IV Fluids, diet of clear liquids, and activity as tolerated were ordered. POD # 1 afebrile, vitals stable, no leukocytosis. Preoperative pain resolved and postop tenderness at incisions controlled. NO nausea or vomiting with clear liquids. Diet advanced as tolerated. Patient was discharged home on POD # 1 with 7 day course of po Cipro/flagyl and Percocet prn pain. Total Time Total Time Spent Total Time Spent (In Minutes): 1 hour Total Time Includes: Examination of the Patient, Discharge Planning, Medication Reconciliation and Other ([facility]) Discharge Plan Discharge Items Patient Disposition: Home - Self-Care Reason For Visit: ABD PAIN SINCE 3AM LOWER LEFT Discharge Diagnosis: Acute appendicitis Activity: Per Instructions section Non-emergency contact: Surgeon Call non-emergency contact if: your pain is not controlled, your pain is worsening, your pain is concerning for you, you have a fever, your temperature is above 101, your wound has increased redness, your wound has increased drainage and your wound pain has increased Follow-up/Referrals: PCP,NO [Primary Care Provider] - Diet: Regular Addtl Attending Provider Instructions: Post-Surgical ~Discharge Instructions Activity Recommendations: - lifting limitation: (25 pounds for 4 weeks), - exercise/sex/sports limit: (nonstrenuous for 2 weeks), - driving or machine use limit: (none for 1 week or until pain free and no longer taking narcotic pain medication), - Shower/bathe limit: (may shower beginning Thursday03/17/2021 ) Diet: - Resume previous diet SPECIAL CARE INSTRUCTIONS: - May shower starting Thursday03/17/21. Sponge bath and wash hair in meantime. On Thursday, remove outer dressing and let water run over area and pat dry. - Leave steri strips on for one week and then remove. They may fall off on their own that is okay. - Call the surgeon's office with any questions or concerns - - (ex. temperature higher than 101 degrees F, excessive bleeding or pain). MEDICATIONS: - Resume previous medications unless instructed otherwise by your surgeon. - You may alternate extra strength Tylenol and Ibuprofen as needed for mild pain - 500-650 mg Tylenol every 6 hours as needed - Ibuprofen 600 mg every 6 hours as needed (take with food) - Percocet 1 every 4 hours, as needed for moderate to severe pain FOLLOW UP VISIT: - If not already scheduled, please call the office to schedule a two week follow-up appointment. Office number Pending Studies at Discharge: Yes Stand-Alone Forms: [facility], Smoking Cessation Medications and DC Order Prescriptions: New oxycodone-acetaminophen [Percocet] 5-325 mg tablet 1 tab PO Q6H PRN (Reason: pain) Qty: 5 RF: 0 ciprofloxacin HCl 500 mg tablet 500 mg PO BID Qty: 14 RF: 0 metronidazole 500 mg tablet 500 mg PO TID Qty: 21 RF: 0 Continued losartan 50 mg Tablet 50 mg PO DAILY RF: 0 metformin 500 mg Tablet 500 mg PO DAILY RF: 0 omeprazole 20 mg Capsule,Delayed Release(Dr/Ec) 20 mg PO DAILY RF: 0 Discharge Orders: Discharge Order (Routine); Ordered 03/14/21 Ordered By: Jasmin Freitas Admission Data Admit Date/Time: 03/13/21 18:07 Attending Provider: Michelet Culver Admit Provider: Michelet Culver Primary Care Provider: PCP,NO Other Providers: Michelet Culver ; [facility] Other Interventions: Discharge Summary Assessment (RN) Last Done: 03/14/21 13:04
[2021-03-15] MEDS ORDERED: metFORMIN HCL 500 MG TAB PO SCH (07:30)
== END 2021-03-14 14:10 | disposition home or self-care (01) ==
LOC: ED 09:53 → ASU 15:56 → 3N 15:56